=== PATIENT | male | born 1950 | race Caucasian/White ===

== ENCOUNTER → 2024-06-04 | Outpatient (CLI) | payer MEDICARE, SELFPAY ==
--- NOTE | 2024-06-04 13:59 | MRI_ITS ---
PROCEDURE: PELVIS W/WO CONTRAST REASON FOR EXAM: Prostate cancer, dysuria. Planning for XRT TECHNIQUE: Multiplanar, multisequence MRI of the prostate was performed before and following intravenous gadolinium-based contrast. Axial, coronal, and sagittal high-resolution T2-weighted images, axial T1-weighted images, diffusion-weighted images with high B value, and dynamic postcontrast fat saturated T1-weighted images were performed. CONTRAST: Clariscan 13 mL COMPARISON: Prostate MRI June 2023. PSMA PET-CT September 2023. FINDINGS: Prostate Volume: 21.7 mL (prostate measures 3.5 x 3.7 x 3.2 cm). Peripheral Zone: Diffuse uniform hypointensity throughout the entire peripheral zone. No focal restricted diffusion or focal hyperenhancement. Transitional Zone: Diffuse mildly heterogeneous hypointensity throughout the entire transition zone. Seminal vesicles: Normal and symmetric. Neurovascular bundles: Normal and symmetric. Lymph nodes: No lymphadenopathy is identified. Bone marrow: No suspicious lesions. Miscellaneous: Spacer gel between the prostate and rectum measuring 5.2 x 3.3 x 1.9 cm. Diffuse urinary bladder trabeculation with small left-sided diverticulum measuring 1.5 cm. Small fat containing left inguinal hernia, unchanged. MRI/Pelvis W/WO Contrast IMPRESSION: 1. Compared to June 2023, decreased size of the prostate gland with diffuse h ypointensity throughout the peripheral and transition zone. No focal suspicious lesion is evident. Spacer gel is noted b etween the prostate and rectum. 2. No pelvic adenopathy or marrow lesions identified. Reading Location: [facility]
== END | disposition home or self-care (01) ==
PROVIDERS: PCP Nurse Practitioner Family; Referring Provider Student in an Organized Health Care Education/Training Program; Visit Provider Student in an Organized Health Care Education/Training Program
DX: C61 Malignant neoplasm of prostate (principal)
CPT/HCPCS: 72197; A9575

== ENCOUNTER → 2024-07-18 | Outpatient (CLI) | payer MEDICARE, SELFPAY ==
--- NOTE | 2024-07-18 12:46 | MRI_ITS ---
PROCEDURE: PELVIS W/WO CONTRAST (MRIPELWW), 07/18/2024 REASON FOR EXAM: EVAL PRIOR TO RADIATION TECHNIQUE: Multisequence multiplanar MRI pelvis was performed with and without IV contrast. CONTRAST: 13 mL Clariscan COMPARISON: MR prostate 06/04/2024 and 07/11/2023. Note that the report for the MR dated 07/11/2023 is not available for comparison, only the images are available for review. FINDINGS: Note that given a history of previous therapy for prostate cancer, PI-RADS can not be applied as it is intended for treatment naive glands. Diffusion imaging limited by artifact related to bowel gas. Poor signal to noise ratio on dynamic postcontrast imaging, however some diagnostic information is obtained. Prostate size: 3.4 x 3.1 x 2.7 cm, estimated volume 15 mL. Previous spacing material between the anterior rectum and posterior prostate has nearly completely resorbed with a tiny residual measuring roughly 4 mm. Prostate: Ill-defined diffuse T2 hypointensity throughout the NMGHF-[id number]-icfr-LEFT posterior peripheral zones as well as the RIGHT anterior peripheral zone in the posterior and RIGHT aspect of the transition zone, presumably reflecting at least in part posttreatment changes, obscuring normal glandular anatomy, and making delineation of additional discrete lesions challenging particularly given small size of the gland. There is patchy ill-defined associated restricted diffusion associated with much of this area, spanning up to essentially the entire diameter of the gland on axial imaging, up to 3.7 cm (for example, series 10 images 11-13 and 15). Some areas within this distribution demonstrate early/contemporaneous enhancement. In the absence of prior therapy, findings would be most consistent with PI-RADS 5. Extracapsular extension:Difficult to evaluate the capsule given that it is indistinct in many areas presumably at least in part related to posttreatment changes. Although there is no gross/bulky or definite extracapsular extension, there is diffuse capsular abutment well over 1 cm, which increases the risk of early/microscopic extracapsular extension. Note that this includes immediate abutment of the bilateral seminal vesicle bases, bilateral neurovascular bundles, bladder neck, and anterior rectum; and although there is no definite invasion of the structures, early/microscopic involvement can not be excluded. Neurovascular bundles: As above. Seminal vesicles: As above. Bladder: As above. Distended partially imaged. Marked trabeculation with numerous small diverticuli suggesting chronic bladder outlet obstruction. Prominence imaged portions of the bilateral distal ureters. Lymph nodes: Unremarkable. Bones: No frankly destructive bony lesions identified. 7 mm focus of enhancement in the lateral and anterior LEFT sacral ala abutting the SI joint is unchanged from 07/11/2023 suggesting a possible degenerative etiology. Other: Trace hydroceles. Small fat containing LEFT inguinal hernia. MRI/Pelvis W/WO Contrast IMPRESSION: 1. Note that given a history of previous therapy for prostate cancer, PI-RADS c an not be applied as it is intended for treatment naive glands. Presumed posttreatment changes throughout the gland neck delinea tion of normal glandular anatomy including the capsule as well as discrete lesions challenging, particularly given the small s ize of the gland. Additional mild artifact related to bowel gas. 2. Allowing for the above, favoring the [id number]-[id number]-yoci-LEFT and posterior s lightly greater than anterior gland spanning the 3.7 cm diameter are suspicious, and in the absence of previous therapy would be most consistent with PI-RADS 5. 3. Diffuse capsular abutment with indistinct appearance of the capsule at least in part felt related to posttreatment changes, as above. Diffuse capsular abutment well over 1 cm, increases the risk of early/m icroscopic extracapsular extension. Note that this includes immediate abutment of the bilateral seminal vesicle bases, bilateral n eurovascular bundles, bladder neck, and anterior rectum; and although there is no definite invasion of the structures, early/argelia roscopic involvement cannot be excluded. 4. 7 mm focus of enhancement in the LEFT sacrum abutting the SI joint is unchan ged from 07/11/2023 suggesting a possible degenerative etiology. Recommended continued attention on follow-up. 5. No overt pelvic lymphadenopathy. 6. Additional description as above. Reading Location: [id number]
== END | disposition home or self-care (01) ==
PROVIDERS: PCP Nurse Practitioner Family; Referring Provider Student in an Organized Health Care Education/Training Program; Visit Provider Student in an Organized Health Care Education/Training Program
DX: C61 Malignant neoplasm of prostate (principal)
CPT/HCPCS: 72197; A9575; A4216

== ENCOUNTER 2024-08-05 11:06 | Day surgery (SDC) | payer MEDICARE, SELFPAY ==
--- NOTE | 2024-08-02 15:41 | PAT.ANESEVAL ---
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 When Was Last Pacemaker Check QUESTION #4 FULL TEXT: You/Your Family Experience fever (hyperthermia) with Anesthesia Last Oral Intake Last Oral intake: Last Oral Intake NPO since Meds taken in AM with sips of water? Meds patient instructed to take am of surgery PONV PONV - distribution operations manager: PONV - distribution operations manager Female No 07/31/24 11:24 HX of Motion Sickness No 07/31/24 11:24 HX of N/V After Surgery No 07/31/24 11:24 Non-Smoker Yes 07/31/24 11:24 Duration of Surgery greater No 07/31/24 11:24 than 60 minutes Number of Risk Factors 1 07/31/24 11:24 PONV Score Low Risk 07/31/24 11:24 Height & Weight Height & Weight: Anesthesia: Height & Weight Height 5 ft 7 in 07/22/24 13:03 Respiratory Assessment Respiratory Assessment - distribution operations manager: Respiratory Tract Infection Hx - distribution operations manager Hx Respiratory Tract Infection No 07/31/24 11:24 STOP Sleep Apnea STOP Sleep Apnea - distribution operations manager: STOP Sleep Apnea - distribution operations manager Hx Hypertension Yes: CONTROLLED WITH MED 07/31/24 11:24 Hx Sleep Apnea No 07/31/24 11:24 CPAP BIPAP Do you snore loudly (louder No 07/31/24 11:24 than talking or can be heard Do you often feel tired/ No 07/31/24 11:24 fatigued/ sleepy during daytime? Has anyone observed you stop No 07/31/24 11:24 breathing during sleep? STOP Results Negative 07/31/24 11:24 QUESTION #5 FULL TEXT : Do you snore loudly (louder than talking or can be heard through closed doors)? 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 Specify any problems Hx of Preganancy in last 3 N/A 07/31/24 11:24 Months Nurse Filling Out Transfusion NBUCHER 07/31/24 11:24 & Questions: Date: 07/31/24 07/31/24 11:24 Time: 11:27 07/31/24 11:24 Patient unable to answer at this time (ie. confused, unrespo /Reproduction History /Reproductive History - distribution operations manager: /Reproductive Hx- distribution operations manager Hx Now No 07/31/24 11:24 Gestational Age (in weeks): EDC: Hx Hx Para Hx Section SAB No 07/31/24 11:24 PFSH Medical History (Updated 07/31/24 @ 11:30 by Mellissa Batista) Wears glasses Thyroid disease Cancer Prostate disease High cholesterol Former smoker Colon polyps Vitamin D deficiency IFG (impaired fasting glucose) Dysuria Chronic bilateral low back pain without sciatica Hypothyroidism HTN (hypertension) Hyperlipidemia BPH (benign prostatic hyperplasia) Prostate cancer Elevated PSA Home Medications ?Medication ?Instructions ?Recorded ?Last Taken ?Type tamsulosin 0.4 mg capsule (Flomax) 0.4 mg PO BID 10/31/23 Unknown History atorvastatin 10 mg tablet 10 mg PO QDAY 11/06/23 Unknown History clonidine HCl 0.1 mg tablet 0.1 mg PO BID 11/06/23 Unknown History ergocalciferol (vitamin D2) 1,250 1,250 mcg PO 2XW 11/06/23 Unknown History mcg (50,000 unit) capsule levothyroxine 25 mcg tablet 25 mcg PO QDAY 11/06/23 Unknown History losartan 100 mg tablet 100 mg PO QDAY 11/06/23 Unknown History meloxicam 7.5 mg tablet 7.5 mg PO QDAY 11/06/23 Unknown History metoprolol succinate 25 mg 25 mg PO QDAY 11/06/23 Unknown History tablet,extended release 24 hr Allergy/AdvReac Type Severity Reaction Status Date / Time No Known Allergies Allergy Verified 07/31/24 11:23 Surgical History History of coronary artery stent placement History of colonoscopy Social History Smoking Status: Former smoker substance use type: does not use Audit: Pertinent Findings Pertinent Findings EKG Perinent findings: March 26, 2024. Sinus bradycardia [address] and T wave abnormality. Echo (EF%) pertinent findings: March 11, 2024. Left ventricular ejection fraction 60%. No aortic stenosis noted. Heart catheterization pertinent findings: March 14, 2024. 1. Left coronary artery system dominance. 2. Nonobstructive coronary artery disease. 3. Preserved left ventricular systolic function 60 to 65%. Consult pertinent findings: August 02, 2024. Dr. Duarte. 1. Chest pain-patient was seen 02/20/2024 for chest pain. Workup included echo and cardiac cath as seen above. Patient compliant with medication. Increase atorvastatin to 40 mg. Follow-up in 6 months. 2. Refractory hypertension-continue clonidine, losartan, metoprolol. Start hydrochlorothiazide. Recommendation Anesthesia Recommendation Anesthesia recommendation: OPTIMIZED for anesthesia
[2024-08-05] VITALS (9 sets, daily range): BP systolic 89–171; BP diastolic 55–92; PULSE 57–91; RESP 14–18; TEMP 36.4–36.8; O2SAT 95–98; BMI 24.8
--- NOTE | 2024-08-05 11:49 | PRE.ANES_ITS ---
ASA Classification* ASA Classification ASA Classification: 2 Assessment & Plan Anesthesia* Anesthesia Assessment Anesthesia Assessment: Discussed sedation and/or anesthesia options, risks, benefits, and alternatives with patient/parents/legal guardian/POA. Questions invited. The patient/parents/legal guardian/POA seems to understand and agrees to proceed with anesthesia plan. Reviewed the physical assessment, medical history, allergy history and patient home medications list prior to surgery/procedure/anesthetic and documented any changes. Performed airway and anesthesia risk assessments. 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 When Was Last Pacemaker Check QUESTION #4 FULL TEXT: You/Your Family Experience fever (hyperthermia) with Anesthesia Last Oral Intake Last Oral intake: Last Oral Intake NPO since 23:00 08/05/24 11:26 Meds taken in AM with sips of No 08/05/24 11:26 water? Meds patient instructed to take am of surgery PONV PONV - hoop punch and coiler operator: PONV - hoop punch and coiler operator Female No 07/31/24 11:24 HX of Motion Sickness No 07/31/24 11:24 HX of N/V After Surgery No 07/31/24 11:24 Non-Smoker Yes 07/31/24 11:24 Duration of Surgery greater No 07/31/24 11:24 than 60 minutes Number of Risk Factors 1 07/31/24 11:24 PONV Score Low Risk 07/31/24 11:24 Height & Weight Height & Weight: Anesthesia: Height & Weight Height 5 ft 7 in 08/05/24 11:26 Weight: 72 kg 08/05/24 11:26 Body Mass Index (BMI) 24.8 08/05/24 11:26 Respiratory Assessment Respiratory Assessment - hoop punch and coiler operator: Respiratory Tract Infection Hx - hoop punch and coiler operator Hx Respiratory Tract Infection No 07/31/24 11:24 STOP Sleep Apnea STOP Sleep Apnea - hoop punch and coiler operator: STOP Sleep Apnea - hoop punch and coiler operator Hx Hypertension Yes: CONTROLLED WITH MED 07/31/24 11:24 Hx Sleep Apnea No 07/31/24 11:24 CPAP BIPAP Do you snore loudly (louder No 07/31/24 11:24 than talking or can be heard Do you often feel tired/ No 07/31/24 11:24 fatigued/ sleepy during daytime? Has anyone observed you stop No 07/31/24 11:24 breathing during sleep? STOP Results Negative 07/31/24 11:24 QUESTION #5 FULL TEXT : Do you snore loudly (louder than talking or can be heard through closed doors)? 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 Specify any problems Hx of Preganancy in last 3 N/A 07/31/24 11:24 Months Nurse Filling Out Transfusion NBUCHER 07/31/24 11:24 & Questions: Date: 07/31/24 07/31/24 11:24 Time: 11:27 07/31/24 11:24 Patient unable to answer at this time (ie. 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 and coiler operator: /Reproductive Hx- hoop punch and coiler operator Hx Now No 07/31/24 11:24 Gestational Age (in weeks): EDC: Hx Hx Para Hx Section SAB No 07/31/24 11:24 [facility] Medical History Wears glasses Thyroid disease Cancer Prostate disease High cholesterol Former smoker Colon polyps Vitamin D deficiency IFG (impaired fasting glucose) Dysuria Chronic bilateral low back pain without sciatica Hypothyroidism HTN (hypertension) Hyperlipidemia BPH (benign prostatic hyperplasia) Prostate cancer Elevated PSA Home Medications ?Medication ?Instructions ?Recorded ?Last Taken ?Type tamsulosin 0.4 mg capsule (Flomax) 0.4 mg PO BID 10/3008/04/24 History atorvastatin 10 mg tablet 10 mg PO QDAY 11/06/2308/04 History clonidine HCl 0.1 mg tablet 0.1 mg PO BID 11/06/2310/23 History ergocalciferol (vitamin D2) 1,250 1,250 mcg PO 2XW 12/2208/04/24 History mcg (50,000 unit) capsule levothyroxine 25 mcg tablet 25 mcg PO QDAY 11/06/23 History losartan 100 mg tablet 100 mg PO QDAY 11/06/2310/23 History meloxicam 7.5 mg tablet 7.5 mg PO QDAY 11/06/2310/23 History metoprolol succinate 25 mg 25 mg PO QDAY 11/06/2310/23 History tablet,extended release 24 hr Allergy/AdvReac Type Severity Reaction Status Date / Time No Known Allergies Allergy Verified 08/05/24 11:24 Surgical History History of coronary artery stent placement History of colonoscopy Social History Smoking Status: Former smoker substance use type: does not use Review of Systems (Anesthesia) ROS Narrative System reviewed and no additional complaints, except as documented.
--- NOTE | 2024-08-05 12:15 | COLBX_PTH ---
PATIENT: SAMANTHA WU LOC: EN U#:[id number] AGE/SX: 73/M ROOM: RE08/05/[address]: Dr. Manohar James DO : 1950 BED: DIS: 08/05/2024 SPEC #: [id number] RECD: 08/06/24 08:51 STATUS: HAYDE RENory #: [id number] DINORAH: 08/05/24 12:[address]: Manohar James DEPT: SURGICAL PATHOLOGY RECD BY: Jas Oakes ENTERED: 08/06/24 08:52 SP TYPE: COLON BX OTHR DR: Cassi Phelps, EVENT ORGANIZER-C Tissues: A - Rectum, NOS Procedures: Surgery Specimen Level IV HEADER OPERATION: Flexible sigmoidoscopy, biopsy, APC PRE-OP DIAGNOSIS: Primary malignant neoplasm of prostate with high risk of recurrence due to Concord score of 8 to 10 and PSA greater than 20, rectum injury TISSUE SUBMITTED: A- Rectal ulcer biopsy MICROSCOPIC DIAGNOSIS A. Rectum, ulcer, biopsy: * Mild acute inflammation, nonspecific, with focal changes suggestive of prolapse. * No ulceration is seen in these sections. MICROSCOPIC DESCRIPTION Slides are reviewed. GROSS DESCRIPTION A. Received in fixative is one container labeled with the patient's name and designated Rectal ulcer biopsy. The specimen consists of multiple irregular fragments of light lima soft tissue that in aggregate measure 1 x 0.2 x 0.2 cm. The specimen is totally submitted in one cassette. 08/06/2024 CPT:13873
--- NOTE | 2024-08-05 12:25 | PCM.HP.STD ---
HPI - General General Date of Admission: 08/05/24 Date of Service: 08/05/24 Chief Complaint: rectal pain HPI Narrative Chief Complaint: spacer gel rectum infiltration Details: SAMANTHA WU, is a 73 M who presents to the office today for establishment with [facility]. Pt with prostate cancer referred to [facility] from radiation oncologist Dr. Hanson for sigmoidoscopy. Pt underwent placement of spacer gel for induction of radiation therapy. Recent MRI noting possible infiltration of the rectal wall. Pt endorsed gel leaking from his anus. Last colonoscopy was about a year. Pt has constipation but this is typical for him. He denies rectal pain or bleeding. [facility] Medical History Wears glasses Thyroid disease Cancer Prostate disease High cholesterol Former smoker Colon polyps Vitamin D deficiency IFG (impaired fasting glucose) Dysuria Chronic bilateral low back pain without sciatica Hypothyroidism HTN (hypertension) Hyperlipidemia BPH (benign prostatic hyperplasia) Prostate cancer Elevated PSA Home Medications ?Medication ?Instructions ?Recorded ?Last Taken ?Type tamsulosin 0.4 mg capsule (Flomax) 0.4 mg PO BID 10/31/23 08/04/24 History atorvastatin 10 mg tablet 10 mg PO QDAY 11/06/23 08/04/24 History clonidine HCl 0.1 mg tablet 0.1 mg PO BID 11/06/23 08/04/24 History ergocalciferol (vitamin D2) 1,250 1,250 mcg PO 2XW 11/06/23 08/04/24 History mcg (50,000 unit) capsule levothyroxine 25 mcg tablet 25 mcg PO QDAY 11/06/23 08/04/24 History losartan 100 mg tablet 100 mg PO QDAY 11/06/23 08/04/24 History meloxicam 7.5 mg tablet 7.5 mg PO QDAY 11/06/23 08/04/24 History metoprolol succinate 25 mg 25 mg PO QDAY 11/06/23 08/04/24 History tablet,extended release 24 hr Allergy/AdvReac Type Severity Reaction Status Date / Time No Known Allergies Allergy Verified 08/05/24 11:24 Surgical History History of coronary artery stent placement History of colonoscopy Social History Smoking Status: Former smoker substance use type: does not use ROS Constitutional Constitutional: Denies fatigue, fever(s), poor appetite, weight gain or weight loss Gastrointestinal Gastrointestinal: Denies belching, bloating, change in bowel habits, change in stool character, chewing difficulty, coffee ground emesis, constipation, cramping, diarrhea, dyspepsia, dysphagia, early satiety, excessive flatus, fecal incontinence, heartburn, hematemesis, hematochezia, hemorrhoids, loose stools, melena, nausea, odynophagia, rectal bleeding, tenesmus, vomiting or weight changes Vital Signs Vital Signs Vital Signs: 08/05/24 11:26 08/05/24 11:26 08/05/24 11:49 Temperature 98.2 F 98.2 F Temperature Source Temporal Pulse Rate 91 91 Respiratory Rate 14 14 Respiratory Pattern Normal Blood Pressure 171/92 H 171/92 H Blood Pressure Mean 118 Blood Pressure Source Monitor Blood Pressure Position Semi-Fowlers Blood Pressure Location Right Arm Pulse Ox 97 97 Oxygen Delivery Method Room Air Weight Weight: 158 lb 11.725 oz Body Mass Index (BMI) 24.8 Physical Exam Const alert, oriented x3, no apparent distress and healthy appearing General Appearance: cooperative GI normal to inspection, nondistended, normoactive bowel sounds, soft to palpation, non-tender and non-distended Percussion: normal to percussion Rectal Exam: deferred Assessment & Plan Assessment/Plan (1) Rectum injury: (2) Primary malignant neoplasm of prostate with high risk of recurrence due to Robbin score of 8 to 10 and PSA greater than 20: PLAN: Assessment and Plan Assessment and Plan (1) Primary malignant neoplasm of prostate with high risk of recurrence due to Robbin score of 8 to 10 and PSA greater than 20: Status: Acute (2) Rectum injury: Status: Acute Plan: This is a 73 yo male pt currently undergoing treatment for prostate cancer. Pt had gel spacer placement recently prior to induction of radiation therapy. MRI after placement indicating possible infiltration of the rectal wall. Pt referred to [facility] to be scheduled for sigmoidoscopy to evaluate his rectum. Induction of radiation is on hold until rectal infiltration is ruled out. He denies rectal pain or bleeding. -Sigmoidoscopy to evaluate rectal wall infiltration
--- NOTE | 2024-08-05 13:22 | OP.FLEXSIG_ITS ---
Patient Name: Boyd Shafer Procedure Date: 08/05/2024 1:04 PM Date of : 1950 Age: 73 Procedure: Flexible Sigmoidoscopy Indications: Rectal hemorrhage Providers: DO Norberto Green MD: Nancy Maurer Medicines: Monitored Anesthesia Care Patient Profile: This is a 73 year old male. Refer to note in patient chart for documentation of history and physical. Last Colonoscopy: 1 year ago. Complications: No immediate complications. Procedure: Pre-Anesthesia Assessment: - Prior to the procedure, a History and Physical was performed, and patient medications and allergies were reviewed. The patient is competent. The risks and benefits of the procedure and the sedation options and risks were discussed with the patient. All questions were answered and informed consent was obtained. Patient identification and proposed procedure were verified by the physician in the pre-procedure area. Mental Status Examination: alert and oriented. Airway Examination: normal oropharyngeal airway and neck mobility. Respiratory Examination: clear to auscultation. CV Examination: normal. Prophylactic Antibiotics: The patient does not require prophylactic antibiotics. Prior Anticoagulants: The patient has taken no anticoagulant or antiplatelet agents except for NSAID medication. ASA Grade Assessment: II - A patient with mild systemic disease. After reviewing the risks and benefits, the patient was deemed in satisfactory condition to undergo the procedure. The anesthesia plan was to use monitored anesthesia care (MAC). Immediately prior to administration of medications, the patient was re-assessed for adequacy to receive sedatives. The heart rate, respiratory rate, oxygen saturations, blood pressure, adequacy of pulmonary ventilation, and response to care were monitored throughout the procedure. The physical status of the patient was re-assessed after the procedure. After obtaining informed consent, the endoscope was passed under direct vision. Throughout the procedure, the patient's blood pressure, pulse, and oxygen saturations were monitored continuously. The Colonoscope was introduced through the anus and advanced to the sigmoid colon. The flexible sigmoidoscopy was accomplished without difficulty. The patient tolerated the procedure well. The quality of the bowel preparation was good. Scope In: 1:08:48 PM Scope Out: 1:16:14 PM Total Procedure Duration Time 0 hours 7 minutes 26 seconds Findings: Discontinuous areas of bleeding ulcerated mucosa with stigmata of recent bleeding were present in the rectum. Biopsies were taken with a cold forceps for histology. Verification of patient identification for the specimen was done. Estimated blood loss was minimal. Coagulation for bleeding prevention using argon plasma at 0.3 liters/minute and 25 valle was successful. Estimated blood loss was minimal. Impression: - Mucosal ulceration. Biopsied. Treated with argon plasma coagulation (APC). Recommendation: - Use original regular Metamucil one teaspoon PO daily. Procedure Code(s): --- Professional --- 04304, Sigmoidoscopy, flexible; with control of bleeding, any method CPT copyright 2021 [employer]. All rights reserved. The codes documented in this report are preliminary and upon evp sales review may be revised to meet current compliance requirements. Manohar James DO 08/05/2024 1:21:48 PM This report has been signed electronically. Number of Addenda: 0 Note Initiated On: 08/05/2024 1:04 PM
--- NOTE | 2024-08-05 13:22 | OP.CCLET_ITS ---
08/05/2024 Cassi Phelps, [employer] [facility] Re : Flexible Sigmoidoscopy procedure for Boyd Shafer Dear Lenin This procedure was performed on Monday, August 05, 2024. My impressions and recommendations are as follows: Impressions : - Mucosal ulceration. Biopsied. Treated with argon plasma coagulation (APC). Recommendations : - Use original regular Metamucil one teaspoon PO daily. My findings are described in the full procedure note, which is enclosed. If I can be of further assistance, please feel free to contact me at . Sincerely, Manohar James, 08/05/2024 1:21:48 PM This report has been signed electronically.
--- NOTE | 2024-08-05 13:27 | PCM.POST.ANE ---
Anesthesia: Postop Eval I Current Vital Signs Temperature: 97.5 F Pulse Rate: 60 Blood Pressure: 89/58 Respiratory Rate: 16 Pulse Ox: 98 Oxygen Delivery Method: Room Air Assessment Airway patent: Yes Spontaneous unlabored respirations: Yes Mental status: Asleep nausea: No Vomiting: No Anesthesia Complication: No Fluid Hydration Crystalloid volume administer (ml): 40 Total IV fluid infused: 40 Progress Note Anesthesia document: Postop Eval 1 completed: Yes
--- NOTE | 2024-08-05 13:59 | PCM.POSTANE2 ---
Anesthesia Postop Eval I Sum Postop Eval Completion status Anesthesia document: Postop Eval 1 completed: Yes Anesthesia Postop Eval I Summary Anesthesia Postop Eval I Summary: Anesthesia Postop Eval I: Assessment Summary Airway patent Yes 08/05/24 13:29 [email or web address] Spontaneous unlabored Yes 08/05/24 13:29 [email or web address] respirations Mental status Asleep 08/05/24 13:29 [email or web address] nausea No 08/05/24 13:29 [email or web address] Vomiting No 08/05/24 13:29 [email or web address] Anesthesia Postop Eval I: Fluid Summary Crystalloid volume administer 40 08/05/24 13:29 [email or web address] (ml) Colloids volume administered ( ml) Blood Product volume administered (ml) Total IV fluid infused 40 08/05/24 13:29 [email or web address] Anesthesia Postop Eval I: Summary Notes Anesthesia Complication No 08/05/24 13:29 [email or web address] Anesthesia Complication Comment: Post-operative progress note Anesthesia: Postop Eval II Evaluation Mental status: Awake Pain Level: 0 nausea: No Vomiting: No
== END 2024-08-05 14:36 | disposition home or self-care (01) ==
LOC: EN 11:07 → AC 11:09
PROVIDERS: PCP Nurse Practitioner Family; Referring Provider Nurse Practitioner Family; Visit Provider Internal Medicine Gastroenterology
PROC: 0DJD8ZZ Inspection of Lower Intestinal Tract, Via Natural or Artificial Opening Endoscopic (ICD-10-PCS; CPT 45330; principal; 2024-08-05 12:10)
DX: K62.89 Other specified diseases of anus and rectum (principal); C61 Malignant neoplasm of prostate; K62.5 Hemorrhage of anus and rectum; I10 Essential (primary) hypertension; E78.00 Pure hypercholesterolemia, unspecified; E03.9 Hypothyroidism, unspecified; Z79.1 Long term (current) use of non-steroidal anti-inflammatories (NSAID); Z79.890 Hormone replacement therapy; Z79.899 Other long term (current) drug therapy; Z87.891 Personal history of nicotine dependence; Z95.5 Presence of coronary angioplasty implant and graft
CPT/HCPCS: 45334; 45331; 88305; C1889; A4216; J2405